=== PATIENT | male | born 1975 | race Caucasian/White ===

== ENCOUNTER 2023-11-29 21:58 | Emergency (ER) | payer BC, SELFPAY ==
[2023-11-29 22:00] VITALS: BP 121/89
[2023-11-29 22:15] VITALS: BMI 26.7
--- NOTE | 2023-11-29 23:02 | EDRN ---
Pt reports history of back pain, herniated discs, sees an Orthopedic Chiropractor. Pt states last weekend was his 's 50th & son's 21[age] birthday libertarian and thinks he danced too much, back started to hurt him. pt noticed when trying to put
on his flip flop he had decreased dorsiflexion in his L foot. Started medrol dosepack but symptoms/pain have not improved. Pt reports pain to lower back, L hip.
[2023-11-29 23:31] VITALS: BP 117/77
--- NOTE | 2023-11-29 23:48 | ED.GENMED ---
History of Present Illness
General
Chief Complaint: Musculo-Skeletal Complaint
Source: patient
Exam Limitations: none
Time Seen by Provider: 11/29/23 23:03
Travel History
Have you had any contact with someone who has COVID-19?: No
Do you have any symptoms of coronavirus? Fever > 100 degrees, chills, cough, shortness of breath, sore throat, loss of taste or smell, muscle aches, or headache?: No
History of Present Illness
History of Present Illness:
48-year-old male with a history of left-sided neuropathic pain and pain in the left hip and herniated disks who presents with left foot drop that started on . He noticed when he tried to put his flop on he could not hold it on. Patient
states he does have pain in that left hip. He does occasionally get pain down into the calf. Patient seen a doctor in the past but does not follow with a surgeon. He does have still took the first 2 days of a Medrol Dosepak. Patient denies
fevers. No bowel or bladder incontinence. No other motor weakness other than the left foot drop. He is it is difficult for him to work because it makes it difficult for him to walk. 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
Past History
Past History
ED Past Medical History: Other (lumbar radiculopathy)
ED Past Surgical History: Other (Hemorrhoids)
Phy Exam
Physical Exam
Physical Exam:
CONSTITUTIONAL Vital signs reviewed, Patient alert and oriented to person, place and time. Well-appearing
HEAD atraumatic, normocephalic.
EYES eyelids normal to inspection, Extraocular muscles intact, Conjunctiva normal, Sclera normal.
NECK normal range of motion, Trachea midline, no jugular venous distention.
RESP no respiratory distress
BACK No obvious deformities
UPPER EXTREMITY Gross Range of motion normal, gross motor strength normal
LOWER EXTREMITY Gross range of motion normal, Gross motor strength normal
NEURO Speech normal, No focal motor deficits include, Shabbir coma scale 15, Memory normal, Cranial Nerves intact to screening exam. Left foot drop noted. Normal perfusion. Normal extension and flexion at the knee. Normal plantarflexion
bilaterally. Normal flexion at the hip bilaterally.
SKIN Skin warm, dry, and normal in color.
PSYCHIATRIC Patient oriented to person place and time, Normal affect.
Course
Orders/Labs/Results
Orders:
Orders
11/29/23 23:25
Lumbar Spine, 2 or 3 View [CR Lumbar Spine 2 Or 3 Views] Urgent
Comment:
Reason For Exam: low back pain, L foot drop
Vital Signs
Initial and Last Documented VS:
Initial Vital Signs
Temp Pulse Resp BP Pulse Ox
98.3 F 116 18 121/89 98
11/29/23 22:00 11/29/23 22:00 11/29/23 22:00 11/29/23 22:00 11/29/23 22:00
Last Documented Vital Signs
Temp Pulse Resp BP Pulse Ox
98.3 F 96 14 117/77 98
11/29/23 22:00 11/29/23 23:31 11/29/23 23:31 11/29/23 23:31 11/29/23 23:31
MDM/Problems Addressed
MDM/Problems Addressed:
Lumbar radiculopathy, foot drop
*Radiology
Radiology exam reviewed: preliminary read by ED provider (Generative changes, no acute fracture or bony lesions)
*Pulse Oximetry
Patient hypoxic: no
*Critical Care Note
Total Time (30-74mins, 75-104mins- exclusive of procedures): Not Applicable
Data Reviewed
Source: patient
Further Testing Considered But Not Given:
Consider labs but suspect related to lumbar radiculopathy
Patient Management
Escalation/DeEscalation of care consider admission/obs:
Will advise close outpatient follow-up. Likely needs MRI. Likely related to lumbar compression and less likely related to neurologic disease. Will give trial of steroids. Okay for outpatient follow-up
ED Attending Note
-
Portions of this chart may have been created with voice recognition software.� Occasional wrong word or��sound alike� substitutions may have occurred due to the inherent limitations of voice recognition software.
Discharge Plan
Departure
Patient Disposition: Home (Routine Discharge)
Date of Disposition: 11/30/23
Time of Disposition: 00:10
Patient with high blood pressure during this ER visit?: No
Discharge Problem:
Left lumbar radiculopathy, Foot drop
Instructions: Radiculopathy (DC), Foot Drop
Prescriptions:
New
prednisone 10 mg Tablet
See Rx Instructions .ROUTE .COMPLEX Qty: 45 0RF
Rx Instructions:
Take By Mouth:
50 mg daily x3 days, 40 mg daily x3 days,
30 mg daily x3 days, 20 mg daily x3 days,
10 mg daily x3 days
Referrals:
Erna Hyatt CRNP [Family Provider] -
Daniel Arreguin MD [Active] -
Activity Restrictions/Additional Instructions:
Please see your doctor or spine surgery in the next 3 days for follow-up and reevaluation. You also need an MRI for further workup. Return immediately for worsening motor dysfunction, bladder dysfunction, urinary or bowel incontinence, increased
pain, fevers or any other concerns.
Interventions
Interventions:
*Risk Screen - Suicide Last Done: 11/29/23 22:00
*General Assessment Last Done: 11/29/23 22:00
*Neglect/Abuse Screening Last Done: 11/29/23 22:00
ED-Musculoskeletal Assessment Last Done: 11/29/23 22:17
Discharge Date and Time
Print Language: SCOTTISH
== END 2023-11-30 00:38 | disposition home or self-care (01) ==
LOC: EMR 21:58
PROVIDERS: EMERGENCY PHYSICIAN Emergency Medicine; FAMILY PHYSICIAN Nurse Practitioner Family
DX: M47.26 Other spondylosis with radiculopathy, lumbar region (principal); M21.372 Foot drop, left foot
CPT/HCPCS: 99283; 72100

== ENCOUNTER → 2023-12-08 11:33 | Outpatient (REF) | payer BC, SELFPAY | LOC: MRI 3T 11:33 | PROVIDERS: ATTENDING PHYSICIAN Orthopaedic Surgery Orthopaedic Surgery of the Spine; FAMILY PHYSICIAN Nurse Practitioner Family; REFERRING PHYSICIAN Orthopaedic Surgery Orthopaedic Surgery of the Spine | DX: M51.16 Intervertebral disc disorders with radiculopathy, lumbar region (principal); M21.379 Foot drop, unspecified foot | CPT/HCPCS: 72148 ==

== ENCOUNTER → 2024-01-09 11:30 | Outpatient (REF) | payer BC, SELFPAY ==
[2024-01-09 12:41] LABS: % Basophils 0.2 % (0-2); % Eosinophils 0.6 % (0-6); % Immature Granulocytes 0.2 % (0-0.5); % Lymphocytes 32.8 % (20.5-51.1); % Monocytes 7.5 % (1.7-9.3); % Neutrophils 58.7 % (42.2-75.2); Absolute Lymphocytes 1.5 10^3/uL (1.2-3.4); Absolute Monocytes 0.4 10^3/uL (0.1-0.6); Absolute Neutrophils 2.7 10^3/uL (1.4-6.5); Hematocrit 41.8 % (39.0-52.0); Hemoglobin 14.1 g/dL (13.0-18.0); Mean Corp Hgb Conc. 33.7 g/dL (33.0-37.0); Mean Corpuscular Hgb 30.7 pg (27.0-31.0); Mean Corpuscular Volume 91.1 fL (80.0-94.0); Mean Platelet Volume 10.9 fL (7.4-10.4); Nucleated Red Blood Cells % 0 % (-); Platelet Count 219 10^3/uL (130-400); Red Blood Cell Count 4.59 10^6/uL (4.70-6.10); Red Cell Dist. Width 12.7 % (11.5-14.5); White Blood Cell Count 4.7 10^3/uL (4.8-10.8)
[2024-01-09 13:03] LABS: ALT (SGPT) 51 U/L (0-50); AST (SGOT) 43 U/L (17-59); Albumin 4.7 g/dl (3.5-5.0); Alkaline Phosphatase 64 U/L (38-126); Blood Urea Nitrogen 18 mg/dl (9-20); Calcium 9.8 mg/dl (8.4-10.2); Carbon Dioxide 25 mmol/L (22-30); Chloride 101 mmol/L (98-107); Glucose 100 mg/dl (70-99); Potassium 4.5 mmol/L (3.5-5.1); Sodium 137 mmol/L (135-145); Total Bilirubin 0.6 mg/dl (0.2-1.3); Total Protein 6.9 g/dl (6.3-8.2); eGFR > 60.00
== END ==
LOC: RCS 11:30
PROVIDERS: ATTENDING PHYSICIAN Physician Assistant
DX: Z01.818 Encounter for other preprocedural examination (principal)
CPT/HCPCS: 36415; 80053; 85025; 93005

== ENCOUNTER → 2024-01-28 06:20 | Day surgery (SDC) | payer BC, SELFPAY ==
--- NOTE | 2024-01-13 09:45 | CM ---
Patient is scheduled for lumbar spine surgery on 01/28/24. Spoke with patient prior to surgery via telephone. Introduced role of the Orthopedic Navigator. Patient reports that he lives with his and son in a one story home. There are three steps
to enter. He currently functions independently. He has a cane. PCP is Kari Alvarez.
Discussed orthopedic program, post surgical plans and tentative plan for patient to return home when directed by surgeon. Patient is in agreement with tentative plan and will have support from his when he goes home.
Per surgical reservation sheet from Dr. Arreguin's office, patient does not need a brace.
Plan: Orthopedic Navigator will remain available to assist with the care of patient and will reassess discharge needs after surgery.
== END ==
LOC: SDS 06:20
PROVIDERS: ATTENDING PHYSICIAN Orthopaedic Surgery Orthopaedic Surgery of the Spine; FAMILY PHYSICIAN Physician Assistant
DX: M54.16 Radiculopathy, lumbar region (principal); Z53.9 Procedure and treatment not carried out, unspecified reason